=== PATIENT | female | born 1985 | race Caucasian/White ===

== ENCOUNTER → 2024-07-19 15:27 | Outpatient (REF) | payer BC, SELFPAY | LOC: MRI 3T 15:27 | PROVIDERS: ATTENDING PHYSICIAN Nurse Practitioner Family | DX: R51.9 Headache, unspecified (principal); M54.2 Cervicalgia; M54.12 Radiculopathy, cervical region | CPT/HCPCS: 70553; 72141; A9575 ==

== ENCOUNTER 2024-12-13 10:47 | Outpatient (RCR) | payer BC, SELFPAY ==
[2024-12-13 10:50] VITALS: BP 122/68
[2024-12-13] MEDS: VENOFER 265 MG IV (11:10)
== END 2024-12-16 08:31 | disposition home or self-care (01) ==
LOC: OID 10:47
PROVIDERS: ATTENDING PHYSICIAN Internal Medicine Gastroenterology
DX: D50.0 Iron deficiency anemia secondary to blood loss (chronic) (principal); N92.0 Excessive and frequent menstruation with regular cycle; D50.9 Iron deficiency anemia, unspecified; E61.1 Iron deficiency
CPT/HCPCS: 96365; J1756

== ENCOUNTER 2024-12-14 20:24 | Emergency (ER) | payer BC, SELFPAY ==
[2024-12-14 20:25] VITALS: BP 153/104
[2024-12-14 20:36] VITALS: BMI 32.8
[2024-12-14 20:42] VITALS: BP 141/86
[2024-12-14 20:59] LABS: % Basophils 0.6 % (0-2); % Eosinophils 2.3 % (0-6); % Immature Granulocytes 0.4 % (0-0.5); % Lymphocytes 37.3 % (20.5-51.1); % Monocytes 8.7 % (1.7-9.3); % Neutrophils 50.7 % (42.2-75.2); Absolute Basophils 0.1 10^3/uL (0-0.2); Absolute Eosinophils 0.2 10^3/uL (0-0.7); Absolute Monocytes 0.7 10^3/uL (0.1-0.6); Hematocrit 27.9 % (37.0-47.0); Hemoglobin 8.3 g/dL (12.0-16.0); Mean Corp Hgb Conc. 29.7 g/dL (33.0-37.0); Mean Corpuscular Hgb 19.7 pg (27.0-31.0); Mean Corpuscular Volume 66.3 fL (81.0-99.0); Mean Platelet Volume 9.5 fL (7.4-10.4); Nucleated Red Blood Cells % 0 %; Platelet Count 496 10^3/uL (130-400); Red Blood Cell Count 4.21 10^6/uL (4.20-5.40); White Blood Cell Count 7.9 10^3/uL (4.8-10.8)
[2024-12-14 21:15] LABS: ALT (SGPT) 27 U/L (0-35); AST (SGOT) 33 U/L (14-36); Albumin 4.7 g/dl (3.5-5.0); Alkaline Phosphatase 91 U/L (38-126); Blood Urea Nitrogen 8 mg/dl (7-17); Calcium 9.8 mg/dl (8.4-10.2); Carbon Dioxide 22 mmol/L (22-30); Chloride 107 mmol/L (98-107); Estimated Creatinine Clearance > 125 ml/min; Glucose 101 mg/dl (70-99); Potassium 3.7 mmol/L (3.5-5.1); Sodium 138 mmol/L (135-145); Total Bilirubin 0.5 mg/dl (0.2-1.3); eGFR > 60.00
--- NOTE | 2024-12-14 21:20 | ED.GENMED ---
History of Present Illness
General
Chief Complaint: Dizziness
Source: patient
Exam Limitations: none
Time Seen by Provider: 12/14/24 21:04
Nursing documentation reviewed up to this point in time: agreed with
History of Present Illness
History of Present Illness:
39-year-old female with a past medical history as noted presents to the ER for evaluation of dizziness and shortness of breath. Patient reports that she was recently diagnosed with anemia with a hemoglobin of 7.7 on outpatient labs. She says she
has been experiencing chronic fatigue and shortness of breath that she attributed to being out of shape. She was seen by gastroenterology a week ago as part of evaluation for this anemia and was scheduled for an iron infusion and had her first iron
infusion yesterday. Today she noticed that she was more fatigued and short of breath than usual and was having some lightheadedness particular with positional changes and so she came to the ER to be evaluated. She has not had any chest pain. She
has not noticed any black or bloody stools. She denies heavy periods and denies current vaginal bleeding. She denies any other complaints.
Past History
Past History
ED Past Medical History: None
ED Past Surgical History: None
Social History
Tobacco: Non-smoker
Personal: Single
Living: with family
Employment: Employed
Review of Systems
Review of Systems
All Other Systems: ROS reviewed and negative except as documented in HPI and ROS
Constitutional: Reports fatigue; Denies fever
Respiratory: Reports trouble breathing; Denies cough
Cardiac: Denies chest pain or palpitations
ABD/GI: Denies abdominal pain, nausea, bloody stools or black stools
: Denies flank pain
Musculoskeletal: Denies neck pain or back pain
Neurological: Reports dizzy
Phy Exam
Physical Exam
Physical Exam:
General: Awake, alert, oriented x3; no acute distress
Head: Normocephalic, atraumatic
Eyes: Pale conjunctiva
Throat: Airway intact, handling secretions
Neck: Trachea midline
Lungs: Clear to auscultation bilaterally, no wheezing, rales, rhonchi
Heart: Regular rate and rhythm, no murmurs, gallops, or rubs
Abd: Soft, non distended, nontender
Rectal: No hemorrhoids noted, no rectal masses, brown stool Hemoccult negative
Neuro: No gross deficits
Skin: Somewhat pale, no rash
Extremities: No edema in extremities, warm and well-perfused
Scores
Heart Failure Risk
Heart Failure Risk Score: Not Applicable
Heart Score for Chest Pain Patients
STEMI patient?: Not applicable
Withdrawal Assessment of Alcohol
Withdrawal Assessment Completed?: Not applicable
Course
Orders/Labs/Results
Orders:
Orders
12/14/24 20:52
C-Reactive Protein Urgent
Comment: ADD ON
CMP [Comprehensive Metabolic Panel] Urgent
Complete Blood Count/With Diff Urgent
Erythrocyte Sed Rate Urgent
Comment: ADD ON
Ferritin Urgent
Comment: ADD ON
Iron Urgent
Comment: ADD ON
Total Iron Binding Urgent
Comment: ADD ON
12/14/24 21:18
Electrocardiogram (*1) Urgent
Reason for Study: Shortness of Breath
EKG- Treatment ONCE
12/14/24 21:28
Add On- LAB Urgent
Tests Added?: crp, ferritan, esr
12/14/24 21:31
* Blood Bank Products Urgent
Blood Bank Products: *Packed RBC Leuko(PRBC's)
Quantity: 1
Transfuse Today: Yes
Reason: Anemia
12/14/24 21:40
Type+Screen Urgent
Abnormal Lab Results
12/14/24 12/14/24
20:52 21:40
Hgb 8.3 L g/dL
(12.0-16.0)
Hct 27.9 L %
(37.0-47.0)
MCV 66.3 L fL
(81.0-99.0)
MCH 19.7 L pg
(27.0-31.0)
MCHC 29.7 L g/dL
(33.0-37.0)
RDW 18.0 H %
(11.5-14.5)
Plt Count 496 H 10^3/uL
(130-400)
Absolute Monos (auto) 0.7 H 10^3/uL
(0.1-0.6)
Glucose 101 H mg/dl
(70-99)
Iron 334 H ug/dl
(37-170)
% Saturation 77 H %
(20-50)
Ferritin 163.0 H ng/ml
(6.24-137)
Crossmatch IS Only See Detail
12/14/24 20:52
12/14/24 20:52
Vital Signs
Initial and Last Documented VS:
Initial Vital Signs
Temp Pulse Resp BP Pulse Ox
36.7 C 108 18 153/104 99
12/14/24 20:25 12/14/24 20:25 12/14/24 20:25 12/14/24 20:25 12/14/24 20:25
Last Documented Vital Signs
Temp Pulse Resp BP Pulse Ox
37.0 C 71 18 130/87 100
12/14/24 23:39 12/14/24 23:39 12/14/24 23:39 12/14/24 23:39 12/14/24 23:20
MDM/Problems Addressed
Differential Diagnosis Includes:
Symptomatic anemia, dysrhythmia, dehydration, electrolyte derangement, adverse effect of iron infusion
MDM/Problems Addressed:
39-year-old female presents for evaluation of some increased shortness of breath and fatigue, positional dizziness in the setting of recently diagnosed anemia. Hypertensive and tachycardic in triage but vital signs normalized by my assessment.
Physical exam is as above. She had lab work sent in triage including a CBC which showed hemoglobin of 8.3�patient reports that she had hemoglobin of 7.7 within the past 2 weeks. Her CMP shows no clinically significant abnormalities. Will add iron
panel. Will check an EKG. Will reassess after the above�likely symptomatic anemia and possibly symptoms exacerbated by some dehydration or hypovolemia. Very low suspicion for emergency such as PE without chest pain, no signs of DVT, no hypoxia or
tachypnea or tachycardia, no symptoms at rest, no risk factors; no fever or cough and clear lungs which goes against diagnosis of pneumonia; no edema in the legs, JVD or other signs to suggest congestive heart failure. I think it would be
reasonable to transfuse a unit of PRBCs for symptomatic anemia�patient is agreeable to this.
Iron studies show elevated iron level, elevated ferritin, elevated percent saturation in the setting of iron infusion yesterday. Patient's EKG shows sinus rhythm. Discussed with patient that at this point I think symptomatic anemia is likely cause
for her symptoms, I think she can reasonably be discharged to continue outpatient anemia workup and treatment after transfusion. Patient is very happy with this plan. Will plan to discharge status posttransfusion.
*Pulse Oximetry
Patient hypoxic: no (98%)
*EKG
Interpreted by ED Provider?: Yes
Heart Rate: 81
Rate: normal
Rhythm: sinus
[place]: normal axis
Interval: normal interval
QRS Pattern: normal QRS
Ischemia: no ischemia
*Critical Care Note
Total Time (30-74mins, 75-104mins- exclusive of procedures): Not Applicable
Data Reviewed
Source: patient and records
ED Attending Note
-
Portions of this chart may have been created with voice recognition software.� Occasional wrong word or��sound alike� substitutions may have occurred due to the inherent limitations of voice recognition software.
Discharge Plan
Departure
Patient with high blood pressure during this ER visit?: Yes
Discharge Problem:
Symptomatic anemia
Instructions: Anemia in adults, possibly from low iron - ED discharge instructions
Prescriptions:
No Action
levothyroxine [Synthroid] 100 mcg Tablet
100 mcg PO DAILY
phentermine 37.5 mg Capsule
37.5 mg PO DAILY
loratadine [Claritin] 10 mg Tablet
10 mg PO DAILY
escitalopram oxalate [Lexapro] 10 mg Tablet
10 mg PO DAILY
Vitamin D3 Complete
10,000 mcg PO DAILY
omeprazole 40 mg Capsule,Delayed Release(Dr/Ec)
40 mg PO HS
multivitamin Capsule
1 cap PO HS
biotin
1 cap PO DAILY
Referrals:
Xenia Oakley DO [Family Provider, Family Practice] - Follow up in 5-7 days
Activity Restrictions/Additional Instructions:
Thank you for visiting the Emergency Department at [facility].
1. Please schedule a follow up appointment as directed. Call first thing tomorrow morning to make an appointment.
2. If indicated, please take your medications as instructed and indicated on discharge paperwork.
3. If any of your symptoms do not improve, or persist, or become more severe within 6-12 hours, please return to the emergency department for further care.
4. Please return to the emergency department if you develop a headache, neck pain/stiffness, fever greater than 100.4F, chest pain, shortness of breath, persistent nausea, vomiting, slurred speech, difficulty walking, numbness/tingling, weakness,
signs of infection or any other symptoms that are worrisome to you.
Please call [phone] if you have any questions.
Interventions
Interventions:
*Risk Screen - Suicide Last Done: 12/14/24 20:28
*General Assessment Last Done: 12/14/24 20:28
*Neglect/Abuse Screening Last Done: 12/14/24 20:28
*ED- Fall Risk Assessment Last Done: 12/14/24 20:36
*ED COVID-19 Vaccine History Last Done: 12/14/24 20:28
ED- Neurological Assessment Last Done: 12/14/24 20:36
ED- Cardiac Assessment Last Done: 12/14/24 20:36
ED Swallowing Screen Last Done: 12/14/24 20:36
Discharge Date and Time
Print Language: SETSWANA
[2024-12-14 21:35] LABS: Iron 334 ug/dl (37-170)
[2024-12-14 21:36] LABS: Erythrocyte Sed Rate 19 mm/hour (0-20)
[2024-12-14 21:44] LABS: Percent Saturation 77 % (20-50); Total Iron Binding Capacity 432 ug/dl (265-497)
[2024-12-14 21:57] LABS: C-Reactive Protein < 5.00 mg/L (0.0-10.00)
[2024-12-14 23:16] VITALS: BP 126/72
[2024-12-14 23:20] VITALS: BP 126/72
[2024-12-14 23:39] VITALS: BP 130/87
[2024-12-15] VITALS: BP 124/74
[2024-12-15] MEDS: TYLENOL 650 MG PO (00:16)
[2024-12-15 00:56] VITALS: BP 124/88
[2024-12-15 00:58] VITALS: BP 124/88
--- NOTE | 2024-12-15 04:22 | DOWNTIME ---
Addendum entered by Maria Isabel Cardona RN 12/15/24 15:23:
Correction: Downtime was 12/15/2024 from 0100 to 12/15/2024 at 0415.
Original Note:
There was a [employer] Downtime on 12/14/2024 from 0100 to 12/15/2024 at 0415. Downtime documentation of patient's care, including medication administrations, has been reconciled in the electronic record per guidelines. Refer to the
patient's paper chart under the miscellaneous tab to see printed paper medication records and downtime forms.
== END 2024-12-15 01:25 | disposition home or self-care (01) ==
LOC: EMR 20:24
PROVIDERS: EMERGENCY PHYSICIAN Emergency Medicine; FAMILY PHYSICIAN Family Medicine
DX: D64.9 Anemia, unspecified (principal); R42 Dizziness and giddiness; R06.02 Shortness of breath
CPT/HCPCS: 36430; 99285; 80053; 82728; 83540; 83550; 85025; 85652; 86140; 86850; 86900; 86901; 86920; 93005; P9016

== ENCOUNTER 2024-12-29 06:31 | Day surgery (SDC) | payer BC, SELFPAY | END 2024-12-29 11:14 | disposition home or self-care (01) | LOC: GI 06:31 | PROVIDERS: ATTENDING PHYSICIAN Internal Medicine Gastroenterology | DX: D50.0 Iron deficiency anemia secondary to blood loss (chronic) (principal); K64.0 First degree hemorrhoids; R12 Heartburn; K31.89 Other diseases of stomach and duodenum; K29.50 Unspecified chronic gastritis without bleeding; K90.0 Celiac disease | CPT/HCPCS: 45378; 43239; 88305; 88342 ==